=== PATIENT | male | born 1990 | race Caucasian/White ===

== ENCOUNTER → 2021-05-01 09:38 | Outpatient (CLI) | payer OTHER, SELFPAY | PROVIDERS: Visit Provider Nurse Practitioner | DX: U07.1 COVID-19 (principal) | CPT/HCPCS: C9803; U0003; U0005 ==

== ENCOUNTER 2022-06-16 11:51 | Emergency (ER) | payer BC, SELFPAY ==
--- NOTE | 2022-06-16 11:51 | ECG_ITS ---
APPROVED REPORT Exam: Resting ECG HR:77 bpm ECG Measurements Heart Rate 77 AXES DC 132 P 31 QRSd 102 QRS -15 QT 350 T 28 QTc 382 Conclusion SINUS RHYTHM NORMAL ECG UNCONFIRMED REPORT Electronically signed by : David Lovell MD 06/16/2022 19:21:52
[2022-06-16 11:54] VITALS: BP 122/96; PULSE 83; RESP 18; TEMP 37; O2SAT 98; BMI 33.4
[2022-06-16 12:00] VITALS: BP 138/73; PULSE 77; RESP 22; O2SAT 97
--- NOTE | 2022-06-16 12:03 | XR_ITS ---
FINAL REPORT TECHNIQUE: Single view chest CLINICAL HISTORY: cp FINDINGS: A single view of the chest was obtained. The heart and mediastinum are within normal limits. The lungs are clear. There is no pneumothorax. Osseous structures are unremarkable. IMPRESSION: No acute cardiopulmonary process. Reviewed, Interpreted and Dictated by Kenan Talbot III, MD Transcribed by Doris Doss Authenticated and . [facility]
--- NOTE | 2022-06-16 12:10 | PC.NURSE ---
1210 PT PROVIDED URINAL FOR UA
[2022-06-16 12:19] LABS: Chloride 103 mmol/L (98-107); Potassium 4.1 mmoL/L (3.5-5.1); Sodium 138 mmol/L (136-145)
[2022-06-16 12:22] LABS: Alanine Aminotransferase 33 U/L (12-78); Albumin Level 4.6 g/dl (3.5-5.0); Albumin/Globulin Ratio 1.6 (1.1-1.8); Alkaline Phosphatase 42 U/L (38-126); Anion Gap 13.1 mEq/L (5-15); Aspartate Amino Transferase 33 U/L (17-59); Bilirubin,Total 0.3 mg/dl (0.2-1.3); Blood Urea Nitrogen 13 mg/dl (9-20); Carbon Dioxide 26 mmol/L (22.0-30.0); Creatinine Clearance Estimated 150 mL/min (50-200); Estimated Glomerular Filt Rate 87 ml/min (>60); GFR (African American) 105 ML/MIN (>60); Globulin 2.9 g/dL (1.3-3.2); Total Protein,Serum 7.5 g/dl (6.3-8.2)
[2022-06-16 12:23] LABS: Calcium 9.1 mg/dl (8.4-10.2); Glucose 143 mg/dl (74-100)
[2022-06-16 12:30] VITALS: BP 125/77; PULSE 69; RESP 24; O2SAT 95
[2022-06-16 12:42] LABS: Basophils # 0.1 K/mm3 (0-0.2); Basophils % 0.4 % (0.1-2.0); Eosinophils # 0.3 K/mm3 (0.0-0.4); Eosinophils % 2.3 % (0.1-12.0); Hematocrit 43.4 % (42.0-52.0); Hemoglobin 14.3 g/dL (14.1-18.0); Lymphocytes # 1.8 K/mm3 (0.7-4.5); Lymphocytes % 13.9 % (10-50); Mean Corpuscular HGB Conc 32.9 g/dL (31.8-35.4); Mean Corpuscular Volume 91.2 fl (80-94); Mean Platelet Volume 8.5 fl (7.4-10.4); Monocytes # 0.8 K/mm3 (0.1-1.0); Monocytes % 5.9 % (1.7-9.3); Neutrophils # 10.3 K/mm3 (1.8-7.8); Neutrophils % 77.6 % (37.0-80.0); Platelet Count 400 K/mm3 (142-424); Red Blood Count 4.76 M/mm3 (4.60-6.20); Red Cell Distribution Width 13.2 % (11.5-17.5); White Blood Count 13.3 K/mm3 (4.8-10.8)
[2022-06-16 12:45] LABS: Troponin I < 0.01 ng/ml (0.00-0.034)
[2022-06-16 13:00] VITALS: BP 136/76; PULSE 66; RESP 18; O2SAT 96
[2022-06-16 13:30] VITALS: BP 135/82; PULSE 76; RESP 20; O2SAT 97
--- NOTE | 2022-06-16 13:56 | PC.NURSE ---
DR. BRAUN AT BEDSIDE
--- NOTE | 2022-06-16 14:08 | HMH.EDGENADL ---
Discharge Plan Disposition Patient Disposition: Home, Self-Care Condition: Good Referrals Follow up/Referrals: Vlad Bentley [Primary Care Provider] - See instructions Activity Restrictions/Add. Instructions Additional Instructions/Restrictions: All medication as directed. Stay well-hydrated. Return to ER for recurrent chest pain Clinical Impressions Clinical Impression: Atypical chest pain Instructions Patient Instructions: DI for Atypical Chest Pain Discharge ED Provider: Dashawn Montaño Adult HPI General Chief complaint: Chest Pain Stated complaint: chest pain Time Seen by Provider: 06/16/22 12:14 Mode of Arrival: Ambulatory Source of Information: Patient Limitations: No Limitations Description of Symptoms (Recalled from ER Triage Doc. by RN): PT REPORTS BELT LIKE CHEST PAIN UNDER BREAST THAT BEGAN LAST NIGHT. TOOK 324 ASA THIS AM AND PEPTO, REPORTS FEELING SOME BETTER History of Present Illness HPI narrative: 31yo M presents to the emergency department secondary to chest pain that began at 2:00 in the morning. Symptoms improved following antacid, aspirin, Pepto-Bismol. Denies any previous history of heart disease. Does not smoke. Only drinks occasionally. No history of diabetes. Denies significant family history of heart disease. Denies shortness of breath, diaphoresis, nausea/vomiting. No recent illness Related Data Allergies Allergy/AdvReac Type Severity Reaction Status Date / Time No Known Allergies Allergy Verified 06/16/22 12:02 [facility] Disclaimer: The information contained in this section may have been updated after the patient was seen, as this information can be updated by other users. Social History Smoking Status: Never smoker alcohol intake: current current occupational status: employed Travel in the last 8 weeks: None ROS Obtained: Yes Systems reviewed as appropriate & no additional complaints except as documented Physical Exam General General appearance: alert and in no apparent distress Head Head exam: atraumatic Eye Eye exam: Present normal appearance and PERRL; Absent conjunctival injection Neck Neck exam: Present normal inspection, full ROM and trachea midline Chest Chest inspection: Present normal inspection and symmetric chest wall rise Respiratory Respiratory exam: Present normal lung sounds bilaterally; Absent respiratory distress Cardiovascular Cardiovascular exam: Present regular rate, normal rhythm and normal heart sounds Abdominal Exam Abdominal exam: Present soft and normal bowel sounds; Absent distention, tenderness, guarding or rebound Extremities Exam Extremities exam: Present normal capillary refill; Absent tenderness or edema Back Exam Back exam: Present normal inspection Neurological Exam Neurological exam: Present alert, oriented X3 and CN II-XII intact Psychiatric Psychiatric exam: Present normal affect and normal mood Skin Skin exam: Present warm, dry and intact Medical Decision Making Medical Records Medical records reviewed: Yes I reviewed the patient's medical records. Alli Inquiry Pt receiving controlled substance: No Alli was queried for this patient: No Vital Signs: 06/16/22 11:54 06/16/22 12:00 06/16/22 12:30 Temperature 98.6 F Temperature Source Oral Pulse Rate 77 69 Pulse Rate [Radial] 83 Respiratory Rate 18 22 24 Blood Pressure 138/73 125/77 Blood Pressure [Right Arm] 122/96 H Blood Pressure Mean 94 87 Blood Pressure Mean [Right Arm] 104 Blood Pressure Source [Right Arm] Automatic Cuff Blood Pressure Position [Right Arm] Sitting 02 Sat by Pulse Oximetry 98 97 95 Oxygen Delivery Method Room Air 06/16/22 13:00 06/16/22 13:30 Temperature Temperature Source Pulse Rate 66 76 Pulse Rate [Radial] Respiratory Rate 18 20 Blood Pressure 136/76 135/82 Blood Pressure [Right Arm] Blood Pressure Mean 89 92 Blood Pressure Me
--- NOTE | 2022-06-16 14:12 | PC.NURSE ---
PT TO BR TO PROVIDE UA
[2022-06-16 14:19] VITALS: BP 145/72; PULSE 74; RESP 17; TEMP 37; O2SAT 99
[2022-06-16 20:34] LABS: Microscopic, Urine URINE MICROSCOPIC (MICROSCOPIC)
[2022-06-16 20:42] LABS: Appearance,Urine CLEAR (Clear); Bilirubin,Urine Negative (Negative); Blood, Urine Negative (Negative); Color,Urine YELLOW (Yellow); Glucose,Urine (UA) Negative (Negative); Ketones,Urine Negative (Negative); Leukocyte Esterase,Urine Negative (Negative); Nitrate,Urine Negative (Negative); PH,Urine 6.5 (5.0-8.5); Protein,Urine Negative (Negative); Specific Gravity, Urine 1.015 (1.005-1.030); Urobilinogen,Urine 0.2 EU/dl (0.2)
[2022-06-16 20:57] LABS: Barbiturates Screen,Urine Negative ng/ml (<200); Benzodiazepines Screen,Urine Negative ng/ml (<200)
[2022-06-16 20:58] LABS: Amphetamine/Metha Screen,Urine Negative ng/ml (<1000); Methadone Screen,Urine Negative ng/ml (<300)
[2022-06-16 20:59] LABS: Cannabinoid Screen,Urine Negative ng/ml (<50)
[2022-06-16 21:00] LABS: Opiate Screen,Urine Negative ng/ml (<300)
[2022-06-16 21:01] LABS: Phencyclidine Screen,Urine Negative ng/ml (<25)
[2022-06-16 21:24] LABS: Squamous Epithelial Cell,Urine Occasional #/hpf (0-5); WBC,Urine Occasional #/hpf (0-3)
[2022-06-16 21:26] LABS: Cocaine Screen,Urine Negative ng/ml (<300)
== END 2022-06-16 14:20 | disposition home or self-care (01) ==
PROVIDERS: Emergency Provider Family Medicine; PCP Internal Medicine
DX: R07.89 Other chest pain (principal)
CPT/HCPCS: 71045; 80053; 80305; 81001; 84484; 85025; 93005; 99285